=== PATIENT | male | born 1995 | race Caucasian/White ===

== ENCOUNTER 2016-11-10 13:28 | Emergency (ER) | payer SELFPAY ==
[2016-11-10 14:27] VITALS: BP 127/89
--- NOTE | 2016-11-10 14:51 | ERNOTE ---
Medical Problem HPI - General Chief Complaint: General Assessment Time Seen by Provider: 11/10/16 14:43 Source: patient Exam Limitations: no limitations - Immun/Allergies/Home Medications Immunizations: IMMUNIZATION HX Immunizations Up to Date No History of Influenza Vaccine No Hx Pneumococcal Vaccination No Allergies/Adverse Reactions: Allergies No Known Allergies Allergy (Unverified 10/09/12 19:01) Home Medications: HOME MEDICATIONS NK [No Home Medication] 10/09/12 [Last Taken Unknown] - History of Present History Narrative: Pt has had chest pain on the right side for 3 months. Family encouraged him to be seen. He states he does not have the money to be seen in the walk-in clinic because he does not have insurance, so he came here. Pt states that he has smoked a pack a day for 7 years and less per day for another couple of years Timing: constant Severity: mild, moderate Modifying Factors - (Worsens): Present: movement - Stretching right arm, deep breaths Review of Systems - Review of Systems Constitutional: Absent: recent illness, fever, fatigue, malaise EYE: Present: no symptoms reported ENT: Present: no symptoms reported Respiratory: Absent: shortness of breath, cough Cardiology: Present: See HPI Gastrointestinal/Abdominal: Present: no symptoms reported Genitourinary: Present: no symptoms reported Musculoskeletal: Present: no symptoms reported Skin: Present: no symptoms reported Neurological: Present: no symptoms reported Endocrine: Present: no symptoms reported Hematologic/Lymphatic: Present: no symptoms reported Psych: Present: no symptoms reported - Patient's Past Medical History Patient History - Medical: No pertinent hx Patient History - Cardiac/Respiratory: No pertinent hx Patient History - Cancer: Kidney Patient History - Surgical Procedures: Cancer Surgery Patient History - Other: None - Social History Living Situations: home Abuse History: No History of abuse Psych History: No pertinent hx Smoking Status: Former smoker Have you smoked in the past 12 months: Yes Smoking Start Date: 07/24/09 Smoking Stop Date: 07/24/16 Patient requests Smoking Cessation Consult: No Initiate information on Smoking Cessation: No Alcohol Use: none Drug Use: none - Immunizations Immunizations Up to Date: No Hx Pneumococcal Vaccination: No History of Influenza Vaccine: No Physical Exam - Physical Exam General Appearance: Present: wd/wn, alert, no apparent distress Eye Exam: Normal inspection: bilateral Neck: Present: normal inspection, nontender Respiratory: Present: no respiratory distress, normal breath sounds, no accessory muscle use, lungs clear, chest tenderness - right lateral ribs, other Cardiovascular/Chest: Present: regular rate, rhythm, no murmur, normal peripheral pulses Back Exam: Present: normal inspection, no vertebral tenderness, muscle spasm - right paraspinal Extremity Exam: Present: normal inspection, normal range of motion, no edema Neurological Exam: Present: alert, oriented, normal mood/affect, no motor/ sensory deficits Skin Exam: Present: normal color, warm/dry Lymphatic Exam: Present: no adenopathy ED Progress - Results and Orders Patient's Lab Results:: I have reviewed the patient's lab results. Results and Orders: Laboratory Tests 11/10/16 15:00 WBC 6.0 Hgb 16.9 Hct 48.0 Plt Count 189 - Vital Signs Patient's Vital Signs:: I have reviewed the patient's vital signs. Vital Signs: Vital Signs 11/10/16 13:28 Temperature 37.6 C H Pulse Rate 79 Respiratory 16 Rate Blood Pressure 127/89 O2 Sat by Pulse 99 Oximetry - X-Ray X-Ray #1 X-Ray: chest Interpretation: Reviewed by me X-ray Comments: No acute cardio-pulmonary findings - Progress/Reassessment Chief Complaint: General Assessment Departure - Departure Clinical Impression: Thoracic myofascial strain Qualifiers: Encounter type: initial encounter Qualified Code(s): S29.019A - Strain of muscle and tendon of unspecified wall of thorax, initial encounter Disposition: Home self-care Condition: Fair Instructions: Mid-Back Strain With Rehab-Sports[facility] Additional Instructions: warm packs to sore areas. may take ibuprofen 600 mg three times a day for 1-2 weeks to reduce inflamation. follow up with your regular doctor if not improved in 1-2 weeks
[2016-11-10 15:09] LABS: Hemoglobin 16.9 gm/dL (13.5-18.0); Mean Corpuscular Hemoglobin 29.9 pg (27-31); Mean Corpuscular Hgb Conc 35.2 g/dl (32-36); Mean Platelet Volume 10.4 fl (6.0-9.5); Neutrophil # 3.7 K/mm3 (1.3-6.0); Neutrophil % 61.3 % (42-75.0); Platelet Count 189 K/mm3 (150-450); Red Blood Count 5.65 M/mm3 (4.7-6.0); Red Cell Distribution Width 11.7 % (11.5-14.0)
== END 2016-11-10 16:06 | disposition home or self-care (01) ==
LOC: ER 13:28
DX: Z72.0 Tobacco use (principal); Z85.528 Personal history of other malignant neoplasm of kidney